=== PATIENT | female | born 1995 | race Caucasian/White ===

== ENCOUNTER 2020-06-29 10:34 | Inpatient (IN) | payer OTHER ==
[~2020-06-29 10:34] MED LIST: Bupivacaine 0.25% HCL 30 ML VIAL ONE
[2020-06-29] MEDS ORDERED: NS / Oxytocin 40 units/1000ml 1,000 ML IV PRN (10:49)
[2020-06-29] MEDS ORDERED: Lidocaine 1% (PF) 30 ML VIAL SC PRN (10:49)
[2020-06-29] MEDS ORDERED: Butorphanol Tartrate 1 MG/ML VIAL SLOW IVP PRN (10:49)
[2020-06-29] MEDS ORDERED: hydrALAZINE 20 MG/ML VIAL SLOW IVP PRN (10:49)
[2020-06-29] MEDS ORDERED: Misoprostol 200 MCG TAB PR PRN (10:49)
[2020-06-29] MEDS ORDERED: Ondansetron PF 4 MG/2 ML Vial IVP PRN (10:49)
[2020-06-29] MEDS ORDERED: Docusate 100 MG CAP PO PRN (10:49)
[2020-06-29] MEDS ORDERED: Diphenoxylate HCl/Atropine Tablet PO PRN ×2 (10:49)
[2020-06-29] MEDS ORDERED: Acetaminophen 500 MG TAB PO PRN (10:49)
[2020-06-29] MEDS ORDERED: Ibuprofen 800 MG TAB PO PRN (10:49)
[2020-06-29] MEDS ORDERED: HYDROcodone/Acetaminophen 5/325 mg Tablet PO PRN ×2 (10:49)
[2020-06-29] MEDS ORDERED: Zolpidem Tartrate 5 MG TAB PO PRN (10:49)
[2020-06-29] MEDS ORDERED: Promethazine HCl 25 MG/ML VIAL IM PRN (10:49)
[2020-06-29] MEDS ORDERED: Lactated Ringer's 1,000 ML IV SCH (11:00)
[2020-06-29 12:51] LABS: Mean Corpuscular HGB CONC 33.6 g/dL (32.0-36.0); Mean Corpuscular Volume 86.3 fL (78.0-98.0); Mean Platelet Volume 6.9 fL (7.4-10.4); Platelet Count 259 thou/uL (130-400); RBC Distribution Width 11.8 % (11.5-14.5); Red Blood Cell (RBC) Count 4.15 mill/uL (4.20-5.40); White Blood Cell (WBC) Count 12.8 thou/uL (4.8-10.8)
[2020-06-29] MEDS ORDERED: NS w/ Oxytocin 30 units 500 ML ONE (13:26)
[2020-06-29 13:27] LABS: Syphilis Antibody Nonreactive (Nonreactive); Syphilis Antibody Index 0.04 S/CO (<1.00 Non-Reactive)
[2020-06-29 13:28] LABS: HBSAg Index 0.15 S/CO (0-0.99); Hep B Surf Ag Non-Reactive S/CO (NonReactive)
[2020-06-29 13:44] VITALS: BMI 24.3
[2020-06-29] MEDS: Misoprostol 100 MCG TAB VAG SCH ×2 (16:52→19:54)
[2020-06-30 07:47] LABS: SARS-CoV-2 PCR by NAA Not Detected (NotDetected)
[2020-06-30] MEDS ORDERED: Fentanyl 4 mcg/Bup 0.1% Cadd 100 ML ONE (09:14)
[2020-06-30] MEDS ORDERED: Naloxone HCl 0.4 mg/ml Vial IVP PRN ×2 (09:57)
[2020-06-30] MEDS ORDERED: Promethazine HCl 25 MG/ML VIAL IM PRN (09:57)
[2020-06-30] MEDS ORDERED: diphenhydrAMINE 50 MG/ML VIAL IVP PRN (09:57)
[2020-06-30] MEDS ORDERED: Lactated Ringer's 500 ML IV PRN (09:57)
[2020-06-30] MEDS ORDERED: ePHEDrine 50 MG/ML VIAL SLOW IVP PRN (09:57)
[2020-06-30] MEDS ORDERED: Fentanyl 4 mcg/Bupivacaine 0.1% Cassette 100 ML EPIDURAL SCH (10:00)
[2020-06-30] MEDS ORDERED: Communication Order-Pharmacy FS SCH (10:00)
[2020-06-30] MEDS: Acetaminophen 325 MG TAB PO PRN ×2 (10:31→15:13)
[2020-06-30] MEDS: Ondansetron PF 4 MG/2 ML Vial IVP PRN ×2 (12:13→15:50)
[2020-06-30] MEDS ORDERED: hydrALAZINE 20 MG/ML VIAL SLOW IVP PRN (16:43)
[2020-06-30] MEDS ORDERED: diphenhydrAMINE 25 MG CAP PO PRN (16:43)
[2020-06-30] MEDS ORDERED: Misoprostol 200 MCG TAB VAG PRN (16:43)
[2020-06-30] MEDS ORDERED: Milk Of Magnesia 30 ML UDCUP PO PRN (16:43)
[2020-06-30] MEDS ORDERED: Lanolin Ointment 7 GM TUBE TOP PRN (16:43)
[2020-06-30] MEDS ORDERED: Ondansetron PF 4 MG/2 ML Vial IVP PRN (16:43)
[2020-06-30] MEDS ORDERED: Benzocaine-Menthol 82.5 ML CAN TOP PRN (16:43)
[2020-06-30] MEDS ORDERED: Bisacodyl 10 MG SUPP PR PRN (16:43)
[2020-06-30] MEDS ORDERED: Preparation H Ointment 28 GM TUBE PR PRN (16:43)
[2020-06-30] MEDS ORDERED: NS w/ Oxytocin 30 units 500 ML IVPB SCH (17:15)
[2020-06-30] MEDS ORDERED: Zolpidem Tartrate 5 MG TAB PO PRN (18:49)
[2020-06-30] MEDS ORDERED: HYDROcodone/Acetaminophen 5/325 mg Tablet PO PRN (18:49)
[2020-06-30] MEDS: HYDROcodone/Acetaminophen 5/325 mg Tablet PO PRN (19:10)
[2020-06-30] MEDS: Ferrous Sulfate 325 MG TAB PO SCH (21:03)
[2020-06-30] MEDS: Misoprostol 100 MCG TAB VAG SCH ×2 (21:07→21:08)
[2020-07-01] MEDS: Docusate Calcium (SURFAK) 240 MG CAP PO SCH ×3 (00:33→20:02)
[2020-07-01] MEDS: Ibuprofen 800 MG TAB PO SCH ×5 (01:57→15:59)
[2020-07-01 06:28] LABS: Hemoglobin 10.5 g/dL (12.0-16.0); Mean Corpuscular HGB CONC 32.9 g/dL (32.0-36.0); Mean Corpuscular Hemoglobin 28.3 pg (27.0-31.0); Platelet Count 249 thou/uL (130-400); Red Blood Cell (RBC) Count 3.73 mill/uL (4.20-5.40); White Blood Cell (WBC) Count 15.7 thou/uL (4.8-10.8)
[2020-07-01] MEDS: HYDROcodone/Acetaminophen 5/325 mg Tablet PO PRN ×3 (07:21→15:59)
[2020-07-01] MEDS: Ferrous Sulfate 325 MG TAB PO SCH ×2 (07:46→17:53)
[2020-07-01] MEDS ORDERED: Adacel (T-DAP) 0.5 ML SYRINGE IM ONE (09:00)
[2020-07-01] MEDS: Prenatal Vitamin 1 TAB PO SCH (09:21)
[2020-07-02] MEDS: Ibuprofen 800 MG TAB PO SCH ×3 (02:05→07:08)
[2020-07-02] MEDS: Ferrous Sulfate 325 MG TAB PO SCH (07:43)
[2020-07-02] MEDS: Prenatal Vitamin 1 TAB PO SCH (08:13)
[2020-07-02] MEDS: Docusate Calcium (SURFAK) 240 MG CAP PO SCH (08:14)
[2020-07-02] MEDS: HYDROcodone/Acetaminophen 5/325 mg Tablet PO PRN ×2 (08:14→12:06)
[2020-07-02 10:03] VITALS: BP 128/77; TEMP 97.3
[2020-07-02] MEDS ORDERED: SUMAtriptan Succinate 50 MG TAB PO SCH (12:30)
== END 2020-07-02 13:30 | disposition home or self-care (01) | DRG 807 ==
LOC: L&D/OP 10:34 → L&D 10:45 → 3SW 06-30 18:47
PROVIDERS: ADMIT Obstetrics & Gynecology; ATTEND Obstetrics & Gynecology
PROC: 10E0XZZ Delivery of Products of Conception, External Approach (ICD-10-PCS; principal; 2020-06-30)
PROC: 10907ZC Drainage of Amniotic Fluid, Therapeutic from Products of Conception, Via Natural or Artificial Opening (ICD-10-PCS; 2020-06-30)
PROC: 3E033VJ Introduction of Other Hormone into Peripheral Vein, Percutaneous Approach (ICD-10-PCS; 2020-06-30)
DX: O36.5930 Maternal care for other known or suspected poor fetal growth, third trimester, not applicable or unspecified (principal); Z20.822 Contact with and (suspected) exposure to COVID-19; R51.9 Headache, unspecified; O26.893 Other specified pregnancy related conditions, third trimester; Z37.0 Single live birth; Z3A.38 38 weeks gestation of pregnancy
CPT/HCPCS: 36415; 51702; 85027; 86780; 86850; 86900; 86901; 87340; 87635; 88307; J2405; J2590; S0020; U0003; U0005